=== PATIENT | female | born 1975 | race Two or more races ===

== ENCOUNTER 2018-09-05 20:39 | Emergency (ER) | payer MEDICAID, MEDICARE ==
--- NOTE | 2018-09-05 21:03 | Emergency Department Record ---
History of Present Illness - General Chief complaint: Pain Stated complaint: RT SIDE RIB PAIN/SWELLING Time Seen by Provider: 09/05/18 20:40 Source: Patient Mode of Arrival: Ambulatory Limitations: No limitations - History of Present Illness Initial comments: 43 yo female presents to ED for evaluation of right sided rib/RUQ abdominal pain symptoms for the past 1 day. Patient reports recent fall with rib fractures diagnosed approximately 4 weeks ago, denies fevers, chills, nausea, or vomiting symptoms. Patient denies previous abdominal pain symptoms. Patient denies health problems at her baseline. MD Complaint: Abdominal Pain Onset/Timin -: Days(s) History of Same: No Quality: Aching Consistency: Constant Improves with: Nothing Worsens with: Palpation Associated Symptoms: Denies other symptoms - Related Data Home Medications Medication Instructions Recorded Confirmed Last Taken Alprazolam [Xanax] 2 mg PO TID PRN 09/05/18 09/05/18 Unknown Control 1 tab PO DAILY 09/05/18 09/05/18 Gabapentin [Neurontin] 300 mg PO TID 09/05/18 09/05/18 09/05/18 Hydrocodone/Acetaminophen [[place] 1 tab PO Q8H PRN 09/05/18 09/05/18 Unknown 10mg/325mg] [place] Carbonate 300 mg PO TID 09/05/18 09/05/18 09/05/18 Allergies Allergy/AdvReac Type Severity Reaction Status Date / Time cephalexin [From Keflex] Allergy RASH Verified 09/05/18 20:43 ciprofloxacin [From Cipro] Allergy RASH Verified 09/05/18 20:43 Review of Systems Constitutional: Denies: Chills, Fever, Malaise, Night sweats Eyes: Denies: Eye discharge, Eye pain ENT: Denies: Congestion, Ear pain, Epistaxis Respiratory: Denies: Cough, Dyspnea Cardiovascular: Reports: Chest pain. Denies: Dyspnea on exertion, Palpitations Endocrine: Denies: Fatigue, Heat or cold intolerance Gastrointestinal: Reports: Abdominal pain. Denies: Constipation, Nausea, Vomiting Genitourinary: Denies: Incontinence, Retention Musculoskeletal: Denies: Arthralgia, Back pain, Gout, Joint swelling Skin: Denies: Bruising, Change in color Neurological: Denies: Abnormal gait, Confusion, Headache, Seizure Psychiatric: Denies: Anxiety Hematological/Lymphatic: Denies: Anemia, Blood Clots Physical Exam - General General Appearance: Alert, Oriented x3, Cooperative, Anxious Limitations: No limitations - Head Head exam: Atraumatic, Normocephalic, Normal inspection Head exam detail: negative: Abrasion, Contusion, Lemus's sign, General tenderness, Hematoma, Laceration - Eye Eye exam: Normal appearance. negative: Conjunctival injection, Periorbital swelling, Periorbital tenderness, Scleral icterus - ENT Ear exam: negative: Auricular hematoma, Auricular trauma Nasal Exam: negative: Active bleeding, Discharge, Dried blood, Foreign body Mouth exam: negative: Drooling, Laceration, Muffled voice, Tongue elevation - Neck Neck exam: Normal inspection. negative: Meningismus, Tenderness - Respiratory Respiratory exam: Normal lung sounds bilaterally, Chest wall tenderness (Right lower chest wall, RUQ abdomen). negative: Rales, Respiratory distress, Rhonchi , Stridor - Cardiovascular Cardiovascular Exam: Regular rate, Normal rhythm, Normal heart sounds - GI/Abdominal GI/Abdominal exam: Soft, Tenderness (TTP RUQ, no rebound or guarding symptoms are present on examination.). negative: Rebound, Rigid - Rectal Rectal exam: Deferred - exam: Deferred - Extremities Extremities exam: Normal inspection. negative: Calf tenderness, Pedal edema, Tenderness - Back Back exam: Denies: CVA tenderness (R), CVA tenderness (L) - Neurological Neurological exam: Alert, Normal gait, Oriented X3 - Psychiatric Psychiatric exam: Normal affect, Normal mood - Skin Skin exam: Normal color. negative: Abrasion Type of lesion: negative: abrasion Course - Reevaluation(s) Reevaluation #1: 09/05/18 21:29 Laboratory studies were reviewed, WBC 12.7, labs are otherwise grossly unremarkable for an acute process. Reevaluation #2: 09/05/18 21:50 CT Abdomen and Pelvis: No acute process No cholithiasis, cholecystitis Patient was updated on all results, recommended f/u with the patient's PCP for further evaluation of the gallbladder as an outpatient. Patient is resting comfortably on re-examination. Patient appears stable for discharge at this time. Medical Decision Making - Lab Data Result diagrams: 09/05/18 21:04 09/05/18 21:04 Disposition Disposition: Discharge Clinical Impression: RUQ pain Disposition: Home, Self-Care Condition: (2) Stable Instructions: Abdominal Pain (ED) Additional Instructions: Return to ED if your symptoms worsen or if you have any concerns. Ibuprofen as directed. Follow-up with your family doctor in 3-5 days as directed. Forms: Patient Portal Access Time of Disposition: 21:53 Quality - Quality Measures Quality Measures: N/A - Blood Pressure Screening Does Patient Have Any of the Following: No Blood Pressure Classification: Hypertensive Reading Systolic Measurement: 155 Diastolic Measurement: 99 Screening for High Blood Pressure: < First Hypertensive BP, F/U Documented > [ G8950] First Hypertensive Follow-up Interventions: Referral to alternative/primary care provider.
[2018-09-05 21:12] LABS: BASO % 0.7 % (0-6); EOS % 5.7 % (0-6); GRAN % 58.2 % (47-80); HEMATOCRIT 41.9 % (35.0-47.0); HEMOGLOBIN 13.4 gm/dl (11.6-16.0); MEAN CELL VOLUME 105.3 fl (81-97); MEAN CORPUSCULAR HEMOGLOBIN 33.7 pg (27-33); MEAN PLATELET VOLUME 9.2 fl (7.4-10.4); MONO % 6.4 % (0-9); PLATELET COUNT 393 K/uL (130-400); RED BLOOD COUNT 3.98 M/uL (3.80-5.40); RED CELL DISTRIBUTION WIDTH 13.6 % (11.5-14.5); URINE APPEARANCE CLEAR; URINE BILIRUBIN NEGATIVE (NEGATIVE); URINE BLOOD NEGATIVE (NEGATIVE); URINE COLOR YELLOW; URINE GLUCOSE (UA) NEGATIVE (NEGATIVE); URINE KETONE NEGATIVE (NEGATIVE); URINE LEUKOCYTE ESTERASE NEGATIVE (NEGATIVE); URINE NITRITE NEGATIVE (NEGATIVE); URINE PROTEIN NEGATIVE (NEGATIVE); URINE UROBILINOGEN 0.2 E.U./dL (0.20 - 1.00); WHITE BLOOD COUNT W/O DIFF 12.7 K/uL (4.2-12.2)
[2018-09-05 21:25] LABS: BLOOD UREA NITROGEN 23 mg/dL (6-20); CREATININE 0.6 mg/dL (0.5-0.9); EST GLOMERULAR FILTRATION RATE > 60 mL/min
[2018-09-05 21:26] LABS: LIPASE 34 U/L (13-60); TOTAL PROTEIN 7.5 g/dL (6.6-8.7)
[2018-09-05 21:28] LABS: GLUCOSE,RANDOM 109 mg/dL (74-109)
[2018-09-05 21:30] LABS: ALB/GLOB RATIO 1.2 (1.1-1.8); ALBUMIN 4.1 g/dL (4.0-5.0); ALT/SGPT 8 U/L (<33); AST/SGOT 10 U/L (10.0-35.0)
[2018-09-05 21:31] LABS: ALKALINE PHOSPHATASE 39 U/L (45-87)
--- NOTE | 2018-09-07 14:27 | CT SCAN REPORT ---
EXAM: CT OF THE ABDOMEN AND PELVIS WITH CONTRAST HISTORY: RIGHT UPPER QUADRANT PAIN. HISTORY OF RIGHT RIB FRACTURES. TECHNIQUE: Contrast enhanced helical CT examination of the abdomen and pelvis was performed including delayed images through the kidneys with 100 ml of Omnipaque 300 utilized. Oral contrast was not utilized limiting evaluation of bowel. FINDINGS: The lung bases are clear. No pleural or pericardial effusion. The heart is not enlarged. The liver, spleen, pancreas, and adrenal glands are normal in appearance. The right kidney is somewhat malrotated. There is a tiny calcification in the mid to upper right kidney centrally. It is indeterminate whether this is a vascular calcification or a nonobstructing calculus. There is a too small to characterize hypodense focus at the posterior aspect of the mid left kidney measuring 3 mm. This is nonspecific. The kidneys are otherwise normal in appearance. No gross hydronephrosis is seen. There is a tiny calcification in the lower right hemipelvis which is in close proximity to the vesicoureteral junction measuring approximately 2 mm. A calculus without upstream dilatation cannot be excluded. No calcified gallstone is seen. No gross gallbladder wall thickening or pericholecystic fluid. No gross biliary ductal dilatation. No intraabdominal nor retroperitoneal lymphadenopathy. The portal vein and splenic vein are patent. The aorta and its branches are normal in appearance. The uterus is retroflexed. No definite pelvic mass or adenopathy. Fluid density areas are visualized within the right adnexa with the largest measuring 1.9 cm. It is indeterminate whether these relate to fluid distended small bowel loops or ovarian follicles. No gross free fluid in the cul-de-sac. No bowel dilatation nor bowel wall thickening. The appendix is at least partially visualized and normal in appearance. No lytic or blastic bone lesion. No acute osseous fracture is seen. IMPRESSION: 1. NO DEFINITE CT EVIDENCE OF AN ACUTE INTRAABDOMINAL NOR INTRAPELVIC PROCESS. 2. MILDLY MALROTATED RIGHT KIDNEY. TINY NONOBSTRUCTING CALCULUS VERSUS VASCULAR CALCIFICATION IN THE MID TO UPPER RIGHT KIDNEY. TINY CALCIFICATION NEAR THE EXPECTED LEVEL OF THE RIGHT VESICOURETERAL JUNCTION, LIKELY VASCULAR IN ORIGIN THOUGH A NONOBSTRUCTING CALCULUS IS NOT ENTIRELY EXCLUDED. 3. TOO SMALL TO CHARACTERIZE HYPODENSE LESION WITHIN THE POSTERIOR LEFT MID KIDNEY. THIS IS NONSPECIFIC, BUT LIKELY A CYST. 4. NO ACUTE OSSEOUS FRACTURE. 5. SMALL FLUID DENSITY AREAS WITHIN THE RIGHT ADNEXA. IT IS INDETERMINATE WHETHER THESE RELATE TO FLUID DISTENDED SMALL BOWEL LOOPS OR OVARIAN FOLLICLES. ADDENDUM: Not mentioned in the original report is a tiny 2 small to characterize hypodensity in the posterior segment of the right liver lobe as seen on series 3 image 52. This measures 3 mm. It is nonspecific, but likely a cyst or a hemangioma. JOB NUMBER: [id number] [facility]
== END 2018-09-05 22:03 | disposition home or self-care (01) ==
LOC: ER 20:39
DX: R10.11 Right upper quadrant pain (principal); R07.89 Other chest pain; F17.210 Nicotine dependence, cigarettes, uncomplicated
CPT/HCPCS: 74177; 80053; 81003; 83690; 85025; 99283; 99284

== ENCOUNTER 2019-09-30 20:43 | Emergency (ER) | payer MEDICARE ==
--- NOTE | 2019-09-30 20:52 | Emergency Department Record ---
History of Present Illness - General Chief Complaint: Abdominal Pain Stated Complaint: PELVIC PAIN Time Seen by Provider: 09/30/19 20:45 Source: Patient Mode of Arrival: Ambulatory Limitations: No limitations - History of Present Illness Initial Comments: 44 yo female presents with lower abdominal pain. The pain has been coming and going over the last week. She denies and fever. The pain is sharp and crampy and comes in waves. The pain feels like it is in her "lady parts". She states she had two cycles in the last month. This has not occurred before. She denies any vagina discharge and she is not bleeding at this time. She contacted her P CP. She placed her on Flagyl that she is currently taking. She sees a PATIENT FINANCIAL SPECIALIST to monitor her PAP smears. She denies any abnormal PAP smears in the past. No diarrhea. No fever. No dysuria. The pain goes across the lower abdomen equally. No known history of diverticulitis. She had a CT scan in August of 2018 at [facility]. MD Complaint: Abdominal pain -: Week(s) (1) Location: Suprapubic Radiation: Suprapubic Migration to: Suprapubic Quality: Aching, Sharp Consistency: Intermittent Improves With: Nothing Worsens With: Movement Associated Symptoms: Other (2 menstrual cycles in a month) - Related Data Home Medications Medication Instructions Recorded Confirmed Last Taken Levothyroxine Sodium 50 mcg PO DAILY 09/30/19 09/30/19 09/30/19 Allergies Allergy/AdvReac Type Severity Reaction Status Date / Time cephalexin [From Keflex] Allergy RASH Verified 09/30/19 20:48 ciprofloxacin [From Cipro] Allergy RASH Verified 09/30/19 20:48 Review of Systems Constitutional: Denies: Chills, Fever, Malaise, Weakness Eyes: Denies: Eye discharge ENT: Denies: Congestion, Throat pain Respiratory: Denies: Cough, Dyspnea, Wheezes Cardiovascular: Denies: Chest pain, Palpitations, Syncope Endocrine: Denies: Fatigue, Polydipsia, Polyuria Gastrointestinal: Reports: As per HPI, Abdominal pain. Denies: Constipation, Diarrhea, Hematemesis, Hematochezia, Melena, Nausea, Vomiting Genitourinary: Reports: Abnormal menses, Dyspareunia. Denies: Discharge, Dys uria, Frequency, Hematuria, Incontinence, Retention, Urgency Musculoskeletal: Denies: Arthralgia, Back pain, Joint swelling, Myalgia, Neck pain Skin: Denies: Bruising, Change in color, Rash Neurological: Denies: Headache, Numbness, Weakness Psychiatric: Denies: Anxiety Hematological/Lymphatic: Denies: Easy bleeding, Easy bruising Past Medical History - SOCIAL HISTORY Smoking Status: Current every day smoker Drug Use: Occasional Drug Use Detail:: Marijuana - RESPIRATORY Hx Respiratory Disorders: No - CARDIOVASCULAR Hx Cardio Disorders: No - NEURO Hx Neuro Disorders: Yes Hx Neuropathy: Yes - GI Hx GI Disorders: Yes Hx Ulcer: Yes - Hx Genitourinary Disorders: No - ENDOCRINE Hx Endocrine Disorders: No - MUSCULOSKELETAL Hx Musculoskeletal Disorders: Yes Hx Back Injury: Yes (Fx 2015) Comment:: Nerve problems d/t back fx's - PSYCH Hx Psych Problems: Yes Hx Anxiety: Yes (Panic attacks) Comment:: Bipolar - HEMATOLOGY/ONCOLOGY Hx Hematology/Oncology Disorders: No Family Medical History Hx Cancer: Father, Mother Hx Diabetes: Grandparents Hx Heart Disease: Father, Grandparents Physical Exam - General General Appearance: Alert, Oriented x3, Cooperative, No acute distress Limitations: No limitations - Head Head exam: Atraumatic, Normal inspection - Eye Eye exam: Normal appearance, PERRL. negative: Conjunctival injection, Scleral icterus - ENT ENT exam: Normal exam, Mucous membranes moist Ear exam: Normal external inspection Nasal Exam: Normal inspection Mouth exam: Normal external inspection - Neck Neck exam: Normal inspection - Respiratory Respiratory exam: Normal lung sounds bilaterally. negative: Respiratory distress, Rhonchi, Stridor, Wheezes - Cardiovascular Cardiovascular Exam: Regular rate, Normal rhythm, Normal heart sounds - GI/Abdominal GI/Abdominal exam: Soft - Rectal Rectal exam: Deferred - Extremities Extremities exam: Normal inspection. negative: Pedal edema, Tenderness - Back Back exam: Denies: CVA tenderness (R), CVA tenderness (L) - Neurological Neurological exam: Alert, Oriented X3 - Psychiatric Psychiatric exam: Normal affect, Normal mood - Skin Skin exam: Dry, Intact, Normal color, Warm Course - Reevaluation(s) Reevaluation #1: 09/30/19 20:47 The EMR was reviewed The patient had a CT scan of the abdomen and pelvis on 09/05/2018. No definite acute process. Questionable Non obstructing calculi R kidney, small fluid density R adnexa. SB vs ovarian. 2 small hypodense liver cysts. ( A copy of this report was provided to the patient for her follow up with her PCP who is in [place]) 09/30/19 21:52 The CBC was reviewed and is normal The CMP is normal The UA is negative The HCG is negative The pain is vague, comes and goes, associated with two menstrual cycles this month. NO fever. Not consistent with diverticulitis. No GI symptoms. Given her pelvic pain and two cycles I recommemnd return in AM for an US. Radiology was contacted. She can return at 7:30am for an 8am US. 09/30/19 21:55 Wet prep is negative She is stable for DC I instructed her to immediately go to a larger hospital with ultrasound if she is worse in the middle of the night 09/30/19 22:12 Medical Decision Making - Lab Data Result diagrams: 09/30/19 21:05 09/30/19 21:05 Disposition Disposition: Discharge Clinical Impression: Pelvic pain Disposition: Home, Self-Care Condition: (1) Good Instructions: Pelvic Pain (ED) Additional Instructions: Return to the ED by 7:30am for an 8am ultrasound Drink 32 ounces of water 1 hour before arrival and do not urinate. Hold the fluid in your bladder Forms: Patient Portal Access Time of Disposition: 21:54 Quality - Quality Measures Quality Measures: N/A - Blood Pressure Screening Does Patient Have Any of the Following: No Blood Pressure Classification: Normal BP Reading Systolic Measurement: 114 Diastolic Measurement: 79 Screening for High Blood Pressure: < Normal BP, F/U Not Required > [G8783] Pre-Hypertensive Follow-up Interventions: Referral to alternative/primary care provider.
[2019-09-30 21:12] LABS: ABSOLUTE NEUTROPHIL COUNT 6.82; BASO % 0.6 % (0-6); EOS % 3.5 % (0-6); GRAN % 59.1 % (47-80); HEMATOCRIT 41.2 % (35.0-47.0); HEMOGLOBIN 13.1 gm/dl (11.6-16.0); LYMPH % 29.8 % (16-45); MEAN CELL VOLUME 106.5 fl (81-97); MEAN CORPUSCULAR HEMOGLOBIN 33.9 pg (27-33); MEAN CORPUSCULAR HGB CONC 31.8 g/dl (32-36); MEAN PLATELET VOLUME 8.9 fl (7.4-10.4); PLATELET COUNT 397 K/uL (130-400); RED BLOOD COUNT 3.87 M/uL (3.80-5.40); RED CELL DISTRIBUTION WIDTH 12.6 % (11.5-14.5); WHITE BLOOD COUNT W/O DIFF 11.6 K/uL (4.2-12.2)
[2019-09-30 21:13] LABS: URINE APPEARANCE CLEAR; URINE BILIRUBIN NEGATIVE (NEGATIVE); URINE BLOOD NEGATIVE (NEGATIVE); URINE COLOR YELLOW; URINE GLUCOSE (UA) NEGATIVE (NEGATIVE); URINE KETONE NEGATIVE (NEGATIVE); URINE LEUKOCYTE ESTERASE NEGATIVE (NEGATIVE); URINE NITRITE NEGATIVE (NEGATIVE); URINE PROTEIN NEGATIVE (NEGATIVE); URINE UROBILINOGEN 0.2 E.U./dL (0.20 - 1.00)
[2019-09-30 21:15] LABS: HCG,QUALITATIVE URINE NEGATIVE (NEGATIVE)
[2019-09-30] MEDS ORDERED: KETOROLAC 30 MG/ML VIAL IVP ONE (21:17)
[2019-09-30 21:25] LABS: BLOOD UREA NITROGEN 18 mg/dL (6-20); CREATININE 0.8 mg/dL (0.5-0.9); EST GLOMERULAR FILTRATION RATE > 60 mL/min
[2019-09-30 21:26] LABS: LIPASE 38 U/L (13-60); TOTAL PROTEIN 6.3 g/dL (6.6-8.7)
[2019-09-30 21:28] LABS: GLUCOSE,RANDOM 96 mg/dL (74-109)
[2019-09-30 21:30] LABS: ALT/SGPT 18 U/L (<33)
[2019-09-30 21:31] LABS: ALB/GLOB RATIO 1.5 (1.1-1.8); ALBUMIN 3.8 g/dL (4.0-5.0); ALKALINE PHOSPHATASE 47 U/L (35-104); AST/SGOT 18 U/L (10.0-35.0)
== END 2019-09-30 22:02 | disposition home or self-care (01) ==
LOC: ER 20:43
DX: R10.2 Pelvic and perineal pain (principal); F17.210 Nicotine dependence, cigarettes, uncomplicated
CPT/HCPCS: 80053; 81003; 81025; 83690; 85025; 87210; 96374; 99284; J1885

== ENCOUNTER 2019-10-01 07:30 | Emergency (ER) | payer MEDICARE ==
[2019-10-01] MEDS ORDERED: KETOROLAC 30 MG/ML VIAL IM ONE (07:49)
--- NOTE | 2019-10-01 07:56 | Emergency Department Record ---
History of Present Illness - General Chief Complaint: Recheck - Other Stated Complaint: ULTRASOUND Time Seen by Provider: 10/01/19 07:45 Source: Patient Mode of arrival: Ambulatory Limitations: No limitations - History of Present Illness Initial Comments: The patient is here due to a one week hx of pelvic pain. The pain is sharp and crampy at times and is intermittent. There is no nausea, vomiting, fever, diarrhea, dysuria, or vaginal bleeding or discharge. The patient was in the ER for this last night and had neg lab work and a neg pelvic exam. She is now here for a pelvic US. Complaint: Other Onset/Timin -: Week(s) Initial Visit For: Other Returns Today for: Other Symptoms Since Prior Visit: No new symptoms Associated Symptoms: Abdominal pain - Related Data Allergies Allergy/AdvReac Type Severity Reaction Status Date / Time cephalexin [From Keflex] Allergy RASH Verified 09/30/19 20:48 ciprofloxacin [From Cipro] Allergy RASH Verified 09/30/19 20:48 Travel/Exposure Screening - Travel/Exposure Within Last 30 Days Have you traveled within the last 30 days?: No - Additonal Travel/Exposure Details Have you been exposed to anyone with a communicable illness?: No Review of Systems Constitutional: Denies: Chills, Fever Eyes: Denies: Eye discharge ENT: Denies: Congestion Respiratory: Denies: Cough, Dyspnea Past Medical History - SOCIAL HISTORY Smoking Status: Current every day smoker - RESPIRATORY Hx Respiratory Disorders: No - CARDIOVASCULAR Hx Cardio Disorders: No - NEURO Hx Neuro Disorders: Yes Hx Neuropathy: Yes - GI Hx GI Disorders: Yes Hx Ulcer: Yes - Hx Genitourinary Disorders: No - ENDOCRINE Hx Endocrine Disorders: No - MUSCULOSKELETAL Hx Musculoskeletal Disorders: Yes Hx Back Injury: Yes (Fx 2015) Comment:: Nerve problems d/t back fx's - PSYCH Hx Psych Problems: Yes Hx Anxiety: Yes (Panic attacks) Comment:: Bipolar - HEMATOLOGY/ONCOLOGY Hx Hematology/Oncology Disorders: No Family Medical History Any Significant Family History?: Yes Hx Cancer: Father, Mother Hx Diabetes: Grandparents Hx Heart Disease: Father, Grandparents Physical Exam - General General Appearance: Alert, Oriented x3, Cooperative, No acute distress - Head Head exam: Atraumatic, Normocephalic, Normal inspection - Eye Eye exam: Normal appearance, PERRL - Neck Neck exam: Normal inspection, Full ROM. negative: Tenderness - Respiratory Respiratory exam: Normal lung sounds bilaterally. negative: Respiratory distress - Cardiovascular Cardiovascular Exam: Regular rate, Normal rhythm, Normal heart sounds - GI/Abdominal GI/Abdominal exam: Soft, Normal bowel sounds, Tenderness (There is diffuse lower abdominal/ pelvic tenderness with what appears to be a full bladder.). negative: Guarding, Rebound, Rigid - Extremities Extremities exam: Normal inspection, Full ROM, Normal capillary refill. negative: Tenderness Course Vital Signs 10/01/19 07:32 Temperature 97.5 F L Pulse Rate 79 Respiratory 22 Rate Blood Pressure 162/127 Pulse Ox 100 - Reevaluation(s) Reevaluation #1: The patient is doing better at this time. She is back from US and we are waiting on her results. 10/01/19 09:14 Reevaluation #2: The patient is doing better at this time. She was sleeping in the room when I entered. We are still waiting on her US report and I did update her of that fact. 10/01/19 09:59 Reevaluation #3: The patient is doing better at this time but still having pain. I did discuss the neg US with the patient but did relay the finding of the simple cyst on the R. Due to no specific diagnosis found I did recommend and abdominal and pelvic CT to R/O Appendicitis or any other surgical pathology or mass. I explained to the patient that by NOT doing the test she could have a delay in diagnosis of a surgical condition which could lead to bowel infection, perforation, sepsis, need for a colostomy and even . The patient states she has to leave and cannot stay for the test. I did discuss the need to see her doctor tomorrow for recheck and to return to the ER if she changes her mind or for any worsening symptoms. On recheck exam her temp is normal and her abdomen is soft with mild bilateral lower abdominal tenderness. 10/01/19 11:06 Reevaluation #4: I did give the patient her US report that did show the R ovarian cyst. I again did discuss the need for a CT scan but the patient cannot stay for that. She presently does have proper decision making capacity and fully understands the risks of refusing and accepts the risks. She states she will return tonight or tomorrow to have the test performed. 10/01/19 11:24 Medical Decision Making - Data Complexity MDM Data: Labs Ordered and/or Reviewed, X-Ray Ordered and/or Reviewed - Lab Data Result diagrams: 10/01/19 07:55 - Radiology Data Radiology results: Report reviewed (US: 4.4 cm simple cyst R ovary, O/W neg.) Disposition Disposition: Discharge Clinical Impression: Pelvic pain Disposition: Home, Self-Care Condition: (2) Stable Instructions: Abdominal Pain (ED) Additional Instructions: Please continue your regular medicines and please see your doctor tomorrow for recheck. Return to the ER for any fever, worse pain, vomiting or bleeding. Please also see your family doctor to have your elevated blood pressure evaluated further and for possible [employer]PA[employer] referral. Forms: Patient Portal Access Time of Disposition: 11:14 Quality - Quality Measures Quality Measures: N/A - Blood Pressure Screening View Details: Yes Does Patient Have Any of the Following: No Blood Pressure Classification: Hypertensive Reading Systolic Measurement: 162 Diastolic Measurement: 127 Screening for High Blood Pressure: < First Hypertensive BP, F/U Documented > [G8950] First Hypertensive Follow-up Interventions: Referral to alternative/primary care provider.
[2019-10-01 08:02] LABS: ABSOLUTE NEUTROPHIL COUNT 6.16; BASO % 0.5 % (0-6); EOS % 5.8 % (0-6); GRAN % 54.1 % (47-80); HEMATOCRIT 39.1 % (35.0-47.0); HEMOGLOBIN 13.1 gm/dl (11.6-16.0); LYMPH % 33.7 % (16-45); MEAN CELL VOLUME 104.8 fl (81-97); MEAN CORPUSCULAR HEMOGLOBIN 35.1 pg (27-33); MEAN CORPUSCULAR HGB CONC 33.5 g/dl (32-36); MEAN PLATELET VOLUME 8.7 fl (7.4-10.4); MONO % 5.9 % (0-9); PLATELET COUNT 373 K/uL (130-400); RED BLOOD COUNT 3.73 M/uL (3.80-5.40); RED CELL DISTRIBUTION WIDTH 12.9 % (11.5-14.5); WHITE BLOOD COUNT W/O DIFF 11.4 K/uL (4.2-12.2)
--- NOTE | 2019-10-01 09:59 | ULTRASOUND REPORT ---
EXAMINATION: Complete Transabdominal and Endovaginal Ultrasound of the Pelvis EXAM DATE: 10/01/2019 8:58 AM TECHNIQUE: Endovaginal ultrasound imaging was performed after the transabdominal exam for better res olution. INDICATION: pain COMPARISON: CT scan 09/05/2018 Transabdominal Ultrasound of the Pelvis Findings: 1. Uterus Size: The uterus measures 7.3 x 3.4 x 5.3 cm in dimension (length x AP x width). 2. Endometrium: The endometrium images poorly transabdominally. The visualized endometrium measures 5.5 mm in thickness. 3. Myometrium: The myometrium images poorly transabdominally. The myometrium is unremarkable. 4. Ovaries: The right ovary measures 5.3 x 5.8 x 5.0 cm in dimension. The left ovary measures 2.3 x 2.3 x 2.8 cm in dimension. 5. Bilateral Adnexa: Simple appearing 4.4 cm cyst of the right ovary. 6. Other Findings: None. Transvaginal Ultrasound of the Pelvis Findings: 1. Uterus Size: Normal. 2. Endometrium: The endometrium measures 9 mm in thickness. The endometrium is normal. 3. Myometrium: Normal. 4. Ovaries: The right ovary measures 5.5 x 4.6 x 6.1 cm . The left ovary measures 3.5 x 1.8 x 1.9 cm . 5. Other Findings: Multiple follicles are seen of both ovaries. There is a 4.4 cm mostly anechoic c yst of the right ovary with a thin wall and smooth inner wall. Doppler Imaging: Not indicated. Impression: 4.4 cm mostly simple cyst of the right ovary, almost certainly benign. No further follow-up required. No additional acute pelvic pathology. Dictated by: Jeremi Patel MD on 10/01/2019 9:52 AM. .
[2019-10-01] MEDS ORDERED: MORPHINE SULFATE 5 MG/ML VIAL IM ONE (11:04)
== END 2019-10-01 11:25 | disposition home or self-care (01) ==
LOC: ER 07:30
DX: N83.291 Other ovarian cyst, right side (principal); R10.2 Pelvic and perineal pain; F17.210 Nicotine dependence, cigarettes, uncomplicated
CPT/HCPCS: 74176; 76830; 76856; 85025; 86140; 96372; 99283; J1885

== ENCOUNTER 2019-10-01 16:45 | Emergency (ER) | payer MEDICARE ==
--- NOTE | 2019-10-01 18:13 | Emergency Department Record ---
History of Present Illness - General Chief Complaint: Recheck - Other Stated Complaint: CT Time Seen by Provider: 10/01/19 17:49 Source: Patient Mode of arrival: Ambulatory Limitations: No limitations - History of Present Illness Initial Comments: The patient is here due to a hx of lower AP for just over a week. She has had no nausea or vomiting with it. The pain is sharp and crampy and intermittent. She has had a normal appetite during the episodes of the pain and has had no diarrhea, fever, or dysuria. The patient was here last evening and had neg lab work and a neg pelvic exam. The patient also returned this AM for a pelvic US which did not demonstrate any cause of the pain. I did see her this AM and did recommend an abdominal CT but she was not able to stay for it and just returned now for the scan. Presently the patient is very hungry at this time. Complaint: Other Onset/Timin -: Week(s) Initial Visit For: Other Returns Today for: Other Symptoms Since Prior Visit: No new symptoms Associated Symptoms: Abdominal pain Treatments Prior to Arrival: Given pain medications on initial visit - Related Data Allergies Allergy/AdvReac Type Severity Reaction Status Date / Time cephalexin [From Keflex] Allergy RASH Verified 09/30/19 20:48 ciprofloxacin [From Cipro] Allergy RASH Verified 09/30/19 20:48 Travel/Exposure Screening - Travel/Exposure Within Last 30 Days Have you traveled within the last 30 days?: No - Additonal Travel/Exposure Details Have you been exposed to anyone with a communicable illness?: No Review of Systems Constitutional: Denies: Chills, Fever Past Medical History - SOCIAL HISTORY Smoking Status: Current every day smoker - RESPIRATORY Hx Respiratory Disorders: No - CARDIOVASCULAR Hx Cardio Disorders: No - NEURO Hx Neuro Disorders: Yes Hx Neuropathy: Yes - GI Hx GI Disorders: Yes Hx Ulcer: Yes - Hx Genitourinary Disorders: No - ENDOCRINE Hx Endocrine Disorders: No - MUSCULOSKELETAL Hx Musculoskeletal Disorders: Yes Hx Back Injury: Yes (Fx 2015) Comment:: Nerve problems d/t back fx's - PSYCH Hx Psych Problems: Yes Hx Anxiety: Yes (Panic attacks) Comment:: Bipolar - HEMATOLOGY/ONCOLOGY Hx Hematology/Oncology Disorders: No Family Medical History Any Significant Family History?: Yes Hx Cancer: Father, Mother Hx Diabetes: Grandparents Hx Heart Disease: Father, Grandparents Physical Exam - General General Appearance: Alert, Oriented x3, Cooperative, No acute distress (The patient appears very comfortable at this time and is eating a full meal when I w alked into the room.) - Head Head exam: Atraumatic, Normocephalic - Eye Eye exam: Normal appearance, PERRL - Neck Neck exam: Normal inspection, Full ROM. negative: Tenderness - Respiratory Respiratory exam: Normal lung sounds bilaterally. negative: Respiratory distress - Cardiovascular Cardiovascular Exam: Regular rate, Normal rhythm, Normal heart sounds - GI/Abdominal GI/Abdominal exam: Soft, Normal bowel sounds, Tenderness (There is diffuse mild lower abdominal tenderness.). negative: Distended, Guarding, Rebound, Rigid - Extremities Extremities exam: Normal inspection, Full ROM, Normal capillary refill. negative: Tenderness Course Vital Signs 10/01/19 17:13 Temperature 98.2 F Pulse Rate 78 Respiratory 18 Rate Blood Pressure 153/93 Pulse Ox 100 - Reevaluation(s) Reevaluation #1: The patient is doing very well at this time. She is presently "starving" and has a very good appetite. Presently the pain is much better. On exam her abdomen is very soft and nontender in all 4 quads. I did explain the fact that the abdominal CT does appear normal. She is to see her PCP later this week for recheck and to return to the ER for any worsening issues. 10/01/19 19:18 Medical Decision Making - Data Complexity MDM Data: Labs Ordered and/or Reviewed, X-Ray Ordered and/or Reviewed - Lab Data Result diagrams: 10/01/19 18:15 - Radiology Data Radiology results: Report reviewed (Abd/pelvis CT: Neg for any acute changes.) Disposition Disposition: Discharge Clinical Impression: Pelvic pain Disposition: Home, Self-Care Condition: (2) Stable Instructions: Abdominal Pain (ED) Additional Instructions: Please continue your regular medicines and please see your doctor later this week for recheck. Return to the ER for any worsening issues, pain, fever, or vomiting. Forms: Patient Portal Access Time of Disposition: 19:18 Quality - Quality Measures Quality Measures: N/A - Blood Pressure Screening View Details: Yes Does Patient Have Any of the Following: No Blood Pressure Classification: Hypertensive Reading Systolic Measurement: 153 Diastolic Measurement: 93 Screening for High Blood Pressure: < First Hypertensive BP, F/U Documented > [[id number]] First Hypertensive Follow-up Interventions: Referral to alternative/primary care provider.
[2019-10-01 18:18] LABS: ABSOLUTE NEUTROPHIL COUNT 7.47; BASO % 0.5 % (0-6); EOS % 4.8 % (0-6); GRAN % 64.4 % (47-80); HEMATOCRIT 42.7 % (35.0-47.0); HEMOGLOBIN 14.4 gm/dl (11.6-16.0); LYMPH % 22.3 % (16-45); MEAN CELL VOLUME 104.1 fl (81-97); MEAN CORPUSCULAR HEMOGLOBIN 35.1 pg (27-33); MEAN CORPUSCULAR HGB CONC 33.7 g/dl (32-36); MEAN PLATELET VOLUME 8.9 fl (7.4-10.4); PLATELET COUNT 397 K/uL (130-400); RED CELL DISTRIBUTION WIDTH 12.8 % (11.5-14.5); WHITE BLOOD COUNT W/O DIFF 11.6 K/uL (4.2-12.2)
--- NOTE | 2019-10-01 19:13 | CT SCAN REPORT ---
EXAMINATION: CT Abdomen and Pelvis without Contrast EXAM DATE: 10/01/2019 6:30 PM TECHNIQUE: Spiral CT images were obtained from the lung bases to the ischial tuberosities without int ravenous contrast. Coronal and sagittal 2-D reconstructions were made from source images. INDICATION: lowe AP LOWER ABD PAIN X 1 WEEK COMPARISON: 09/05/2018. FINDINGS: Evaluation of solid organs is degraded due to lack of intravenous contrast. Abdomen: There is a small right intrarenal stone. No ureteric stones or hydronephrosis. The kidneys appear oth erwise normal. The liver, spleen, pancreas, and adrenals are normal. No free fluid or free air. Subo ptimal evaluation of bowel due to nondistention and lack of oral contrast. No bowel dilation. Pelvis: A large right ovarian cyst is noted. The pelvic organs are otherwise unremarkable. No free fluid or f ree air. No inflammatory change. The appendix is normal. No bowel dilation. IMPRESSION: 1. Right intrarenal stone. 2. Right ovarian cyst. 3. No acute abnormality. Dictated by: Benny Mendez MD on 10/01/2019 7:02 PM. .
== END 2019-10-01 19:25 | disposition home or self-care (01) ==
LOC: ER 16:45
DX: R10.2 Pelvic and perineal pain (principal); R10.30 Lower abdominal pain, unspecified; F17.210 Nicotine dependence, cigarettes, uncomplicated
CPT/HCPCS: 74176; 85025